=== PATIENT | male | born 1955 | race Caucasian/White ===

== ENCOUNTER 2018-05-18 11:00 | Emergency (ER) | payer OTHER ==
[~2018-05-18 11:00] MED LIST: LANTUS SQ; METF500T PO; SYN0.025T PO; VARE0.5T PO
[2018-05-18 11:02] VITALS: BP 117/72
[2018-05-18] MEDS ORDERED: AMOX-419 PO (11:11)
== END 2018-05-18 12:12 | disposition home or self-care (01) ==
LOC: ER 11:00
DX: S60.311A Abrasion of right thumb, initial encounter (principal); I25.10 Atherosclerotic heart disease of native coronary artery without angina pectoris; E11.9 Type 2 diabetes mellitus without complications; Z98.890 Other specified postprocedural states; Z79.4 Long term (current) use of insulin; Z79.84 Long term (current) use of oral hypoglycemic drugs; Z79.899 Other long term (current) drug therapy; W50.3XXA Accidental bite by another person, initial encounter; Y93.89 Activity, other specified; Y92.89 Other specified places as the place of occurrence of the external cause; Y99.8 Other external cause status
CPT/HCPCS: 36415; 86703; 86706; 86803; 87340; 99283; 99284

== ENCOUNTER 2018-10-18 15:35 | Emergency (ER) | payer OTHER ==
[~2018-10-18] VITALS: Ht 190.5 cm; Wt 94.0 kg
[2018-10-18 15:39] VITALS: BP 114/72
== END 2018-10-18 16:31 | disposition home or self-care (01) ==
LOC: ER 15:35
DX: R07.81 Pleurodynia (principal); I25.10 Atherosclerotic heart disease of native coronary artery without angina pectoris; E11.9 Type 2 diabetes mellitus without complications; F17.210 Nicotine dependence, cigarettes, uncomplicated; Z98.890 Other specified postprocedural states; Z79.4 Long term (current) use of insulin; Z79.84 Long term (current) use of oral hypoglycemic drugs; Z79.899 Other long term (current) drug therapy; Y04.0XXA Assault by unarmed brawl or fight, initial encounter; Y93.89 Activity, other specified; Y92.89 Other specified places as the place of occurrence of the external cause; Y99.8 Other external cause status
CPT/HCPCS: 99281

== ENCOUNTER 2020-09-17 03:33 | Emergency (ER) | payer OTHER ==
[~2020-09-17] VITALS: Ht 190.5 cm; Wt 95.5 kg
[2020-09-17 03:36] VITALS: BP 120/79
--- NOTE | 2020-09-17 05:29 | NUR ---
WOUND AND HAND CLEANED W/ SOAP AND WATER. AREA FLUSHED COPIOUSLY WITH NS. THEN DRIED
== END 2020-09-17 05:36 | disposition home or self-care (01) ==
LOC: ER 03:33
DX: S61.412A Laceration without foreign body of left hand, initial encounter (principal); I25.10 Atherosclerotic heart disease of native coronary artery without angina pectoris; E11.9 Type 2 diabetes mellitus without complications; Z98.890 Other specified postprocedural states; Z79.4 Long term (current) use of insulin; Z79.899 Other long term (current) drug therapy; X58.XXXA Exposure to other specified factors, initial encounter; Y93.89 Activity, other specified; Y92.89 Other specified places as the place of occurrence of the external cause; Y99.8 Other external cause status
CPT/HCPCS: 12001; 99282